=== PATIENT | male | born 1995 | race American Indian/Alaskan Native ===

== ENCOUNTER 2023-09-03 14:00 | Emergency (ER) | payer SELFPAY ==
[~2023-09-03] VITALS: Ht 170.2 cm; Wt 59.1 kg
[~2023-09-03 14:00] MED LIST: ATIVAN 0.50.5 MG/TAB PO; PROTONIX 40MG T40 MG PO
[2023-09-03 14:13] VITALS: BP 142/93; PULSE 106; TEMP 97.4
[2023-09-03] MEDS ORDERED: ATIVAN 0.50.5 MG/TAB PO (16:01)
== END 2023-09-03 16:12 | disposition home or self-care (01) ==
LOC: COL.ER 14:00
DX: F41.9 Anxiety disorder, unspecified (principal)
CPT/HCPCS: J2060

== ENCOUNTER 2023-10-01 08:59 | Emergency (ER) | payer SELFPAY ==
[~2023-10-01] VITALS: Ht 170.2 cm; Wt 63.6 kg
[2023-10-01 09:05] VITALS: BP 157/81; TEMP 98.1
[2023-10-01 09:37] VITALS: PULSE 75
== END 2023-10-01 09:38 | disposition home or self-care (01) ==
LOC: COL.ER 08:59
DX: F41.0 Panic disorder [episodic paroxysmal anxiety] (principal)
CPT/HCPCS: J2060